=== PATIENT | female | born 1990 | race Caucasian/White ===

== ENCOUNTER 2020-02-12 19:16 | Emergency (ER) | payer BC, OTHER ==
[2020-02-12 19:44] LABS: Bilirubin Negative (Negative); Blood, Urine Negative (Negative); Clarity Clear (Clear); Glucose, Urine (Dipstick) Normal (Negative); Leukocyte Negative Leu/uL (Negative); Nitrite Negative (Negative); Protein, Urine (Dipstick) Negative (Neg-Trace); Urobilinogen Normal mg/dL (Less than 2)
[2020-02-12 19:57] LABS: #Basophils 0.1 thou/uL (0.0-0.2); #Eosinphils 0.2 thou/uL (0.0-0.7); #Lymphocytes 2.6 thou/uL (1.20-3.40); #Monocytes 0.8 thou/uL (0.11-0.59); #Neutrophils 7.3 thou/uL (1.40-6.50); %Basophils 0.5 % (0.0-1.0); %Eosinophils 1.5 % (0.0-10.0); %Lymphocytes 23.8 % (21.0-51.0); %Monocytes 7.5 % (0.0-10.0); %Neutrophils 66.7 % (42.0-75.0); Hemoglobin 13.3 g/dL (12.0-16.0); Mean Corpuscular HGB CONC 34.4 g/dL (32.0-36.0); Mean Corpuscular Hemoglobin 31.7 pg (27.0-31.0); Mean Corpuscular Volume 92.1 fL (78.0-98.0); Mean Platelet Volume 7.4 fL (7.4-10.4); Platelet Count 211 thou/uL (130-400); RBC Distribution Width 11.9 % (11.5-14.5); Red Blood Cell (RBC) Count 4.19 mill/uL (4.20-5.40)
[2020-02-12 21:09] LABS: ALT (SGPT) 10 U/L (8-55); AST (SGOT) 11 U/L (5-34); Albumin 3.6 g/dL (3.5-5.0); Alkaline Phosphatase 60 U/L (40-110); Anion Gap 12 mmol/L (10-20); BUN (Urea Nitrogen) 7 mg/dL (7.0-18.7); Bilirubin, Total 0.3 mg/dL (0.2-1.2); Calc. Creatinine Clearance 0 mL/min (70-130); Calcium 8.6 mg/dL (7.8-10.44); Carbon Dioxide 22 mmol/L (22-29); Chloride 106 mmol/L (98-107); Estimated GFR-MDRD Greater than 90; Globulin 2.5 g/dL (2.4-3.5); Glucose 80 mg/dL (70-105); Potassium 4.1 mmol/L (3.5-5.1); Protein, Total 6.1 g/dL (6.0-8.3); Sodium 136 mmol/L (136-145)
--- NOTE | 2020-02-12 22:24 | ULT ---
Transvaginal pelvic ultrasound with grayscale, color-flow and spectral Doppler imaging: HISTORY: 29-year-old female with lower abdominal pain, pelvic pain and no vaginal bleeding FINDINGS: A single live intrauterine gestation is seen with measurements corresponding to an estimated gestatio nal age of 17 weeks 4 days and MARTIN at 07/18/2020. The estimated weight measures 108 g or 7 ounces (88% by Hadlock criteria). measurements as follows: BPD 3.69 cm, 17 weeks 2 days HC 14.25 cm, 17 weeks 4 days AC:12.21 cm, 17 weeks 6 days FL 2.54 cm, 17 weeks 5 days heart rate measures 141 beats a minute. Cervical length measures 4.5 cm. There is a membrane in the lower uterine segment. Placenta is anteriorly located without evidence of placenta previa. Amniotic fluid appears adequate. A three-vessel cord, cord insertion, kidneys, bladder, stomach, 4 chambered heart, lateral vent ricles, cerebellum, spine are visualized and demonstrated no anomalies. IMPRESSION: 1. Single live intrauterine gestation of 17 weeks 4 days estimated gestational age and MARTIN at 020 2. Membrane in the lower uterine segment.
[2020-02-14 18:30] LABS: Chlamydia by PCR Not Detected (NotDetected); GC by PCR Not Detected (NotDetected)
== END 2020-02-12 23:30 | disposition home or self-care (01) ==
LOC: ERS 19:16
DX: O99.89 Other specified diseases and conditions complicating pregnancy, childbirth and the puerperium (principal); R10.30 Lower abdominal pain, unspecified; Z3A.17 17 weeks gestation of pregnancy; Z87.891 Personal history of nicotine dependence
CPT/HCPCS: 36415; 76856; 80053; 81003; 84702; 85025; 87480; 87491; 87510; 87591; 87660; 93976

== ENCOUNTER 2021-04-04 22:28 | Emergency (ER) | payer OTHER ==
[2021-04-04 23:00] LABS: Bilirubin Negative (Negative); Blood, Urine 3+ (Negative); Glucose, Urine (Dipstick) Normal (Negative); Ketone, Urine Negative (Negative); Leukocyte 500 Leu/uL (Negative); Nitrite Negative (Negative); Protein, Urine (Dipstick) 600 mg/dL (Neg-Trace); RBC/HPF Greater than 50 HPF (0-3); Specific Gravity, Urine 1.034 (1.002-1.036); Urobilinogen Normal mg/dL (Less than 2); WBC/HPF Greater than 50 HPF (0-3); pH, Urine 6.5 (5.0-9.0)
[2021-04-04 23:01] LABS: Bacteria/HPF 1+ HPF (None Seen); Clarity Turbid (Clear)
[2021-04-05 01:29] LABS: Pregnancy Test - Urine (BHCG) Negative (Negative); Pregu Control Background? CLEAR/WHITE (CLR/WHITE); Pregu Control Bar Appear? YES (CONTROL BAR)
[2021-04-05 01:30] LABS: Specific Gravity 1.034 (1.002-1.036)
== END 2021-04-05 01:57 | disposition home or self-care (01) ==
LOC: ERS 22:28
DX: N39.0 Urinary tract infection, site not specified (principal)
CPT/HCPCS: 81003; 81015; 81025; 99283

== ENCOUNTER 2022-05-15 11:55 | Inpatient (IN) | payer OTHER ==
[~2022-05-15 11:55] MED LIST: Iopamidol-370 76% 500 ML 1 ML ONE
[2022-05-15] MEDS ORDERED: Acetaminophen 500 MG TAB ONE (12:39)
[2022-05-15] MEDS ORDERED: Haloperidol Lactate 5 MG/ML VIAL ONE ×2 (12:39→15:52)
[2022-05-15 13:03] LABS: #Basophils 0.1 thou/uL (0.0-0.2); #Eosinphils 0.1 thou/uL (0.0-0.7); #Lymphocytes 2.5 thou/uL (1.20-3.40); #Monocytes 0.6 thou/uL (0.11-0.59); #Neutrophils 7.8 thou/uL (1.40-6.50); %Basophils 0.5 % (0.0-1.0); %Eosinophils 0.7 % (0.0-10.0); %Lymphocytes 22.5 % (21.0-51.0); %Monocytes 5.3 % (0.0-10.0); %Neutrophils 70.9 % (42.0-75.0); Hemoglobin 13.6 g/dL (12.0-16.0); Mean Corpuscular HGB CONC 32.7 g/dL (32.0-36.0); Mean Corpuscular Hemoglobin 29.4 pg (27.0-31.0); Mean Corpuscular Volume 90.1 fL (78.0-98.0); Mean Platelet Volume 8.1 fL (7.4-10.4); Platelet Count 226 thou/uL (130-400); RBC Distribution Width 13.1 % (11.5-14.5); Red Blood Cell (RBC) Count 4.62 mill/uL (4.20-5.40)
[2022-05-15 13:24] LABS: ALT (SGPT) 13 U/L (8-55); AST (SGOT) 15 U/L (5-34); Albumin 3.9 g/dL (3.5-5.0); Alkaline Phosphatase 58 U/L (40-110); Anion Gap 15 mmol/L (10-20); BUN (Urea Nitrogen) 9 mg/dL (7.0-18.7); Bilirubin, Total 0.3 mg/dL (0.2-1.2); CRP (Inflammatory) Less than 0.50 mg/dL (= or < 0.5); Calc. Creatinine Clearance 0 mL/min (70-130); Calcium 8.7 mg/dL (7.8-10.44); Carbon Dioxide 23 mmol/L (22-29); Chloride 106 mmol/L (98-107); Estimated GFR 118; Globulin 2.5 g/dL (2.4-3.5); Glucose 155 mg/dL (70-105); Lipase 10 U/L (8-78); Potassium 3.7 mmol/L (3.5-5.1); Protein, Total 6.4 g/dL (6.0-8.3); Sodium 140 mmol/L (136-145)
[2022-05-15 13:46] LABS: Pregnancy Test - Urine (BHCG) Negative (Negative); Pregu Control Background? CLEAR/WHITE (CLR/WHITE); Pregu Control Bar Appear? YES (CONTROL BAR); Specific Gravity 1.017 (1.002-1.036)
[2022-05-15] MEDS ORDERED: Morphine 2 MG/ML VIAL ONE (13:54)
[2022-05-15 14:00] LABS: Clarity Clear (Clear); Leukocyte Unable to Interpret Leu/uL (Negative); Specific Gravity, Urine 1.017 (1.002-1.036); pH, Urine 5.5 (5.0-9.0)
[2022-05-15 14:01] LABS: Bilirubin Unable to Interpret (Negative); Blood, Urine Unable to Interpret (Negative); Glucose, Urine (Dipstick) Unable to Interpret mg/dL (Negative); Ketone, Urine Unable to Interpret mg/dL (Negative); Nitrite Unable to Interpret (Negative); Protein, Urine (Dipstick) Unable to Interpret mg/dL (Neg-Trace); RBC/HPF 0-3 HPF (0-3); Squamous Epithelial None Seen HPF (0-3); Urobilinogen UNABLE TO INTERPRET mg/dL (Less than 2); WBC/HPF 0-3 HPF (0-3)
[2022-05-15 14:02] LABS: Bacteria/HPF Rare-Few HPF (None Seen)
[2022-05-15] MEDS ORDERED: Ondansetron PF 4 MG/2 ML Vial ONE (15:53)
[2022-05-15 16:38] LABS: Lactic Acid 1.8 mmol/L (0.5-2.2)
[2022-05-15] MEDS ORDERED: Metoclopramide HCl 10 MG/2 ML VIAL IVP PRN (16:39)
[2022-05-15] MEDS ORDERED: Acetaminophen 325 MG TAB PO PRN (16:39)
[2022-05-15] MEDS ORDERED: Morphine 2 MG/ML VIAL SLOW IVP PRN (16:49)
[2022-05-15 18:36] LABS: Chlamydia by PCR Not Detected (NotDetected); GC by PCR Not Detected (NotDetected)
[2022-05-15] MEDS: Sodium Chloride 0.9% 1,000 ML IV SCH (18:43)
[2022-05-15 19:42] VITALS: BMI 25.0
[2022-05-15 20:05] LABS: SARS-CoV-2 NAA Rapid Test Not Detected (NotDetected)
[2022-05-15] MEDS: Ondansetron PF 4 MG/2 ML Vial IVP PRN (21:01)
[2022-05-16] MEDS: Sodium Chloride 0.9% 1,000 ML IV SCH ×4 (02:20→20:16)
[2022-05-16 05:14] LABS: #Lymphocytes 1.4 thou/uL (1.20-3.40); #Monocytes 0.7 thou/uL (0.11-0.59); #Neutrophils 9.5 thou/uL (1.40-6.50); %Lymphocytes 12.3 % (21.0-51.0); %Monocytes 5.9 % (0.0-10.0); %Neutrophils 81.7 % (42.0-75.0); Hemoglobin 12.7 g/dL (12.0-16.0); Mean Corpuscular HGB CONC 32.7 g/dL (32.0-36.0); Mean Corpuscular Hemoglobin 29.4 pg (27.0-31.0); Mean Corpuscular Volume 89.9 fL (78.0-98.0); Mean Platelet Volume 8.2 fL (7.4-10.4); Platelet Count 180 thou/uL (130-400); RBC Distribution Width 12.9 % (11.5-14.5); Red Blood Cell (RBC) Count 4.33 mill/uL (4.20-5.40); White Blood Cell (WBC) Count 11.7 thou/uL (4.8-10.8)
[2022-05-16 05:32] LABS: Anion Gap 11 mmol/L (10-20); BUN (Urea Nitrogen) 6 mg/dL (7.0-18.7); Calc. Creatinine Clearance 167 mL/min (70-130); Calcium 8.5 mg/dL (7.8-10.44); Carbon Dioxide 23 mmol/L (22-29); Chloride 107 mmol/L (98-107); Estimated GFR 126; Glucose 124 mg/dL (70-105); Potassium 3.7 mmol/L (3.5-5.1); Sodium 137 mmol/L (136-145)
[2022-05-16] MEDS: Ondansetron PF 4 MG/2 ML Vial IVP PRN (09:25)
[2022-05-16 09:39] LABS: HBCM Index 0.06 S/CO (0-0.79); HBSAg Index 0.29 S/CO (0-0.99); Hep A IgM AB Non-Reactive (NonReactive); Hep A IgM S/CO 0.15 S/CO (0-0.79); Hep B Surf Ag Non-Reactive S/CO (NonReactive); Hep C IgG Ab Non-Reactive (NonReactive); Hep C Index 0.07 S/CO (0-0.79); Hepatitis B Core IgM Abs Non-Reactive (NonReactive)
[2022-05-16 15:55] LABS: Bacteria/HPF None Seen HPF (None Seen); Bilirubin Negative (Negative); Blood, Urine Negative (Negative); Clarity Clear (Clear); Glucose, Urine (Dipstick) Normal (Negative); Ketone, Urine Negative (Negative); Leukocyte Negative Leu/uL (Negative); Nitrite Negative (Negative); Protein, Urine (Dipstick) Negative (Neg-Trace); RBC/HPF 0-3 HPF (0-3); Squamous Epithelial 0-3 HPF (0-3); Urobilinogen Normal mg/dL (Less than 2); WBC/HPF 0-3 HPF (0-3); pH, Urine 7.5 (5.0-9.0)
[2022-05-16 20:23] VITALS: TEMP 98
[2022-05-16] MEDS ORDERED: hydrOXYzine 25 MG TAB PO PRN (20:41)
[2022-05-17 04:53] LABS: #Eosinphils 0.1 thou/uL (0.0-0.7); #Lymphocytes 2.5 thou/uL (1.20-3.40); #Monocytes 0.6 thou/uL (0.11-0.59); #Neutrophils 3.1 thou/uL (1.40-6.50); %Basophils 0.5 % (0.0-1.0); %Lymphocytes 39.7 % (21.0-51.0); %Monocytes 9.4 % (0.0-10.0); %Neutrophils 48.4 % (42.0-75.0); Hemoglobin 11.4 g/dL (12.0-16.0); Mean Corpuscular HGB CONC 32.5 g/dL (32.0-36.0); Mean Corpuscular Hemoglobin 29.4 pg (27.0-31.0); Mean Corpuscular Volume 90.2 fL (78.0-98.0); Mean Platelet Volume 8.2 fL (7.4-10.4); Platelet Count 147 thou/uL (130-400); RBC Distribution Width 12.9 % (11.5-14.5); White Blood Cell (WBC) Count 6.3 thou/uL (4.8-10.8)
[2022-05-17] MEDS: Sodium Chloride 0.9% 1,000 ML IV SCH (05:02)
[2022-05-17 05:21] LABS: Anion Gap 11 mmol/L (10-20); BUN (Urea Nitrogen) 6 mg/dL (7.0-18.7); Calc. Creatinine Clearance 159 mL/min (70-130); Calcium 8.4 mg/dL (7.8-10.44); Carbon Dioxide 24 mmol/L (22-29); Chloride 110 mmol/L (98-107); Estimated GFR 125; Glucose 90 mg/dL (70-105); Potassium 3.5 mmol/L (3.5-5.1); Sodium 141 mmol/L (136-145)
[2022-05-17 08:18] VITALS: BP 107/71
== END 2022-05-17 10:50 | disposition home or self-care (01) | DRG 392 ==
LOC: ERS 11:55 → SUATTDRO 11:55 → MSONC 16:03 → OBSVTOIN 05-16 11:56
PROVIDERS: ADMIT Internal Medicine; ATTEND Internal Medicine
DX: R10.9 Unspecified abdominal pain (principal); Z20.822 Contact with and (suspected) exposure to COVID-19; N73.9 Female pelvic inflammatory disease, unspecified; F41.9 Anxiety disorder, unspecified; F31.9 Bipolar disorder, unspecified; F43.10 Post-traumatic stress disorder, unspecified; F17.210 Nicotine dependence, cigarettes, uncomplicated; R11.2 Nausea with vomiting, unspecified
CPT/HCPCS: 36415; 51701; 74177; 80048; 80053; 80074; 81003; 81015; 81025; 83605; 83690; 85025; 86140; 87040; 87086; 87491; 87591; 87661; 96365; 96375; 96376; G0378; J1630; J2270; J2405; J2765; J7050; Q9967

== ENCOUNTER 2022-05-19 11:48 | Emergency (ER) | payer OTHER ==
[2022-05-19 12:53] LABS: #Basophils 0.1 thou/uL (0.0-0.2); #Eosinphils 0.1 thou/uL (0.0-0.7); #Monocytes 0.6 thou/uL (0.11-0.59); #Neutrophils 5.6 thou/uL (1.40-6.50); %Eosinophils 1.2 % (0.0-10.0); %Lymphocytes 24.2 % (21.0-51.0); %Monocytes 6.9 % (0.0-10.0); %Neutrophils 66.7 % (42.0-75.0); Hemoglobin 14.1 g/dL (12.0-16.0); Mean Corpuscular HGB CONC 32.3 g/dL (32.0-36.0); Mean Corpuscular Hemoglobin 28.6 pg (27.0-31.0); Mean Corpuscular Volume 88.4 fL (78.0-98.0); Mean Platelet Volume 8.1 fL (7.4-10.4); Platelet Count 233 thou/uL (130-400); RBC Distribution Width 12.8 % (11.5-14.5); Red Blood Cell (RBC) Count 4.93 mill/uL (4.20-5.40); White Blood Cell (WBC) Count 8.4 thou/uL (4.8-10.8)
[2022-05-19 13:17] LABS: ALT (SGPT) 14 U/L (8-55); AST (SGOT) 12 U/L (5-34); Albumin 4.1 g/dL (3.5-5.0); Alkaline Phosphatase 62 U/L (40-110); Anion Gap 15 mmol/L (10-20); BUN (Urea Nitrogen) 7 mg/dL (7.0-18.7); Bilirubin, Total 0.5 mg/dL (0.2-1.2); Calc. Creatinine Clearance 0 mL/min (70-130); Calcium 9.3 mg/dL (7.8-10.44); Carbon Dioxide 26 mmol/L (22-29); Chloride 105 mmol/L (98-107); Estimated GFR 112; Globulin 2.4 g/dL (2.4-3.5); Glucose 116 mg/dL (70-105); Potassium 3.6 mmol/L (3.5-5.1); Protein, Total 6.5 g/dL (6.0-8.3); Sodium 142 mmol/L (136-145)
[2022-05-19] MEDS ORDERED: Ondansetron PF 4 MG/2 ML Vial ONE (13:20)
[2022-05-19] MEDS ORDERED: Lidocaine Viscous Sol 2% 15 ml UD Cup ONE (13:20)
[2022-05-19] MEDS ORDERED: Dicyclomine 20 MG/2 ML VIAL ONE (13:20)
[2022-05-19] MEDS ORDERED: Mag-Al 1200 mg/1200 mg/30 ML UDCUP ONE (13:20)
[2022-05-19] MEDS ORDERED: Pantoprazole 40 MG VIAL ONE (13:22)
[2022-05-19 13:25] LABS: Bilirubin Negative (Negative); Blood, Urine Negative (Negative); Clarity Turbid (Clear); Glucose, Urine (Dipstick) Normal (Negative); Ketone, Urine Negative (Negative); Leukocyte Negative Leu/uL (Negative); Nitrite Negative (Negative); Protein, Urine (Dipstick) Negative (Neg-Trace); Specific Gravity, Urine 1.014 (1.002-1.036); Urobilinogen Normal mg/dL (Less than 2); pH, Urine 7.5 (5.0-9.0)
[2022-05-19 13:40] LABS: BHCG - Serum Negative (NEGATIVE); Pregs Control Background? CLEAR/WHITE (CLR/WHITE); Pregs Control Bar Appear? YES (CONTROL BAR)
[2022-05-19 13:48] LABS: CK (CPK) 45 U/L (29-168); Magnesium 1.9 mg/dL (1.6-2.6)
== END 2022-05-19 14:00 | disposition left against medical advice (07) ==
LOC: ERS 11:48
DX: R11.2 Nausea with vomiting, unspecified (principal); Z53.29 Procedure and treatment not carried out because of patient's decision for other reasons; Z87.891 Personal history of nicotine dependence
CPT/HCPCS: 36415; 70450; 80053; 81003; 82550; 83735; 84443; 84484; 84703; 85025; 96372; 96374; 96375; C9113; J2405

== ENCOUNTER 2025-04-28 14:40 | Inpatient (IN) | payer SELFPAY ==
[2025-04-28 15:14] LABS: Pregnancy Test - Urine (BHCG) Negative (Negative); Pregu Control Background? CLEAR/WHITE (CLR/WHITE); Pregu Control Bar Appear? YES (CONTROL BAR)
[2025-04-28 15:19] LABS: #Basophils 0.04 10x3/uL (0.0-0.2); #Eosinophils 0.03 10x3/uL (0.0-0.7); #Monocytes 0.51 10x3/uL (0.11-0.59); #Neutrophils 11.13 10x3/uL (1.40-6.50); %Basophils 0.3 % (0.0-1.0); %Eosinophils 0.2 % (0.0-10.0); %Lymphocytes 6.2 % (21.0-51.0); %Monocytes 4.1 % (0.0-10.0); %Neutrophils 88.8 % (42.0-75.0); Hematocrit 36.4 % (36.0-47.0); Hemoglobin 12.3 g/dL (12.0-16.0); Mean Corpuscular Hemoglobin 30.1 pg (27.0-31.0); Mean Corpuscular Volume 89.0 fL (78.0-98.0); Platelet Count 216 10x3/uL (130-400); Red Blood Cell (RBC) Count 4.09 mill/uL (4.20-5.40); White Blood Cell (WBC) Count 12.54 10x3/uL (4.8-10.8)
[2025-04-28 15:19] LABS: Bacteria/HPF 1+ HPF (None Seen); CAUTI Indications for Culture Pelvic or flank pain; Glucose, Urine (Dipstick) Normal (Negative); Leukocyte Negative Leu/uL (Negative); Protein, Urine (Dipstick) Negative (Neg-Trace); RBC/HPF 0-3 HPF (0-3); Specific Gravity, Urine 1.017 (1.002-1.036); WBC/HPF 0-3 HPF (0-3)
[2025-04-28 15:20] LABS: Urine Culture Reflex No No
[2025-04-28 16:30] LABS: ALT (SGPT) 14 U/L (Less than 34); AST (SGOT) 17 U/L (11-34); Albumin 3.9 g/dL (3.1-4.5); Alkaline Phosphatase 50 U/L (40-110); Anion Gap 17 mmol/L (10-20); BUN (Urea Nitrogen) 12 mg/dL (7.0-18.7); Bilirubin, Total 0.5 mg/dL (0.3-1.2); Calc. Creatinine Clearance 0 mL/min (70-130); Calcium 8.8 mg/dL (7.8-10.44); Carbon Dioxide 19 mmol/L (22-29); Chloride 106 mmol/L (98-107); Globulin 2.5 g/dL (2.4-3.5); Glucose 165 mg/dL (70-105); Potassium 3.5 mmol/L (3.5-5.1); Sodium 138 mmol/L (136-145)
[2025-04-28] MEDS ORDERED: Ketorolac Tromethamine 30 MG (1 mL) VIAL ONE (16:42)
[2025-04-28] MEDS ORDERED: Ondansetron PF 4 MG/2 ML Vial ONE (16:42)
[2025-04-28] MEDS: Ondansetron PF 4 MG/2 ML Vial IVP PRN (20:35)
[2025-04-28] MEDS: HYDROcodone/Acetaminophen 5/325 mg Tablet PO PRN (20:38)
[2025-04-28] MEDS: cefTRIAXone\\ROCEPHIN 2 GM in Sodium Chloride 0.9% 100 ML IVPB SCH (20:41)
[2025-04-28] MEDS: Pantoprazole 40 MG VIAL IVP SCH (21:42)
[2025-04-28] MEDS: Floranex 1 GM Packet PO SCH (21:46)
[2025-04-28] MEDS: Famotidine 20 MG TAB PO SCH (21:46)
[2025-04-29 02:15] LABS: Cocaine Metabolite Screen Negative (Negative); THC/Cannabinoid Screen PRELIM POSITIVE (Negative); Tricyclic Screen Negative (Negative)
[2025-04-29 04:10] VITALS: BMI 28.1
[2025-04-29] MEDS: diphenhydrAMINE 50 MG/ML VIAL IVP SCH (04:21)
[2025-04-29] MEDS: Lactulose 20 GM (30 mL) UDCUP PO SCH (04:21)
[2025-04-29] MEDS: Ondansetron PF 4 MG/2 ML Vial IVP PRN (07:57)
[2025-04-29] MEDS: Potassium Chloride 20 MEQ in Premix 1 BAG IVPB SCH (08:06)
[2025-04-29] MEDS ORDERED: Iopamidol 370 76% 100 ML VIAL ONE (10:22)
[2025-04-29] MEDS: Ondansetron PF 4 MG/2 ML Vial IVP SCH (14:00)
[2025-04-29] MEDS: Electrolyte Replacement Protocol 1 EACH FS ONE (15:47)
[2025-04-29] MEDS: Ketorolac Tromethamine 30 MG (1 mL) VIAL IVP PRN (18:10)
[2025-04-29] MEDS ORDERED: Senokot S 8.6-50 MG TAB PO PRN (18:20)
[2025-04-29] MEDS: Pantoprazole 40 MG VIAL IVP SCH (21:36)
[2025-04-29] MEDS: Dicyclomine 10 MG CAP PO PRN (21:51)
[2025-04-30 05:07] LABS: #Basophils 0.03 10x3/uL (0.0-0.2); #Eosinophils 0.04 10x3/uL (0.0-0.7); #Monocytes 0.59 10x3/uL (0.11-0.59); #Neutrophils 5.55 10x3/uL (1.40-6.50); %Basophils 0.4 % (0.0-1.0); %Eosinophils 0.5 % (0.0-10.0); %Lymphocytes 26.0 % (21.0-51.0); %Monocytes 7.0 % (0.0-10.0); %Neutrophils 66.0 % (42.0-75.0); Hematocrit 34.5 % (36.0-47.0); Hemoglobin 11.1 g/dL (12.0-16.0); Mean Corpuscular Hemoglobin 29.4 pg (27.0-31.0); Mean Corpuscular Volume 91.5 fL (78.0-98.0); Platelet Count 189 10x3/uL (130-400); Red Blood Cell (RBC) Count 3.77 mill/uL (4.20-5.40); White Blood Cell (WBC) Count 8.40 10x3/uL (4.8-10.8)
[2025-04-30 05:37] LABS: ALT (SGPT) 11 U/L (Less than 34); AST (SGOT) 13 U/L (11-34); Albumin 3.3 g/dL (3.1-4.5); Alkaline Phosphatase 36 U/L (40-110); Anion Gap 12 mmol/L (10-20); BUN (Urea Nitrogen) 11 mg/dL (7.0-18.7); Bilirubin, Total 0.4 mg/dL (0.3-1.2); Calc. Creatinine Clearance 175 mL/min (70-130); Calcium 8.3 mg/dL (7.8-10.44); Carbon Dioxide 25 mmol/L (22-29); Chloride 107 mmol/L (98-107); Globulin 1.9 g/dL (2.4-3.5); Glucose 85 mg/dL (70-105); Magnesium 2.0 mg/dL (1.6-2.6); Potassium 3.4 mmol/L (3.5-5.1); Sodium 141 mmol/L (136-145)
[2025-04-30] MEDS: Magnesium 2 GM/50 ML(in water) 2 GM in Premix 1 BAG IVPB SCH (10:38)
[2025-04-30 13:19] VITALS: BP 115/78; TEMP 99.1
[2025-04-30] MEDS: Potassium Phosphate 30 MMOL in Sodium Chloride 0.9% 250 ML 250 ML IVPB SCH (13:24)
[2025-04-30] MEDS: PHOS-NAK 1 PKT PACK PO SCH (13:28)
[2025-04-30] MEDS ORDERED: Pantoprazole 40 MG DR.TAB PO SCH (21:00)
== END 2025-04-30 13:25 | disposition home or self-care (01) | DRG 392 ==
LOC: ERS 14:40 → INTOOBSV 19:13 → SURG A 19:13 → OBSVTOIN 04-29 11:24
PROVIDERS: ADMIT Student in an Organized Health Care Education/Training Program; ATTEND Internal Medicine
DX: R11.10 Vomiting, unspecified (principal); E87.20 Acidosis, unspecified; F12.10 Cannabis abuse, uncomplicated; K52.89 Other specified noninfective gastroenteritis and colitis; E87.6 Hypokalemia; F32.A Depression, unspecified; F41.9 Anxiety disorder, unspecified; F43.10 Post-traumatic stress disorder, unspecified; E83.39 Other disorders of phosphorus metabolism; Z98.890 Other specified postprocedural states; Z82.49 Family history of ischemic heart disease and other diseases of the circulatory system; Z79.899 Other long term (current) drug therapy; Z90.710 Acquired absence of both cervix and uterus; Z87.891 Personal history of nicotine dependence
CPT/HCPCS: 36415; 74174; 74176; 76705; 80053; 80306; 81001; 81025; 83605; 83735; 84100; 85025; 93005; 96374; 96375; 96376; G0378; J0696; J1885; J2270; J2405; J2470; J2543; J2550; J3475; J3480; J7030; J7120; Q9967

== ENCOUNTER 2025-05-07 17:56 | Emergency (ER) | payer MEDICAID, SELFPAY ==
[~2025-05-07 17:56] MED LIST changes: -Iopamidol-370 76% 500 ML 1 ML ONE; +Iopamidol-370 76% 500 ML MDV (1 ML CHARGE) ONE
[2025-05-07] MEDS ORDERED: Ondansetron PF 4 MG/2 ML Vial ONE (18:47)
[2025-05-07] MEDS ORDERED: Acetaminophen 500 MG TAB ONE (18:47)
[2025-05-07] MEDS ORDERED: Ketorolac Tromethamine 30 MG (1 mL) VIAL ONE (18:47)
[2025-05-07 19:08] LABS: Bacteria/HPF None Seen HPF (None Seen); CAUTI Indications for Culture Pelvic or flank pain; Glucose, Urine (Dipstick) Normal (Negative); Leukocyte Negative Leu/uL (Negative); Protein, Urine (Dipstick) Negative (Neg-Trace); RBC/HPF 0-3 HPF (0-3); Specific Gravity, Urine 1.018 (1.002-1.036); WBC/HPF 0-3 HPF (0-3)
[2025-05-07 19:15] LABS: #Basophils 0.05 10x3/uL (0.0-0.2); #Eosinophils Less than 0.03 10x3/uL (0.0-0.7); #Monocytes 0.46 10x3/uL (0.11-0.59); #Neutrophils 12.66 10x3/uL (1.40-6.50); %Basophils 0.4 % (0.0-1.0); %Eosinophils 0.1 % (0.0-10.0); %Lymphocytes 6.0 % (21.0-51.0); %Monocytes 3.3 % (0.0-10.0); %Neutrophils 90.0 % (42.0-75.0); Hematocrit 37.6 % (36.0-47.0); Hemoglobin 12.1 g/dL (12.0-16.0); Mean Corpuscular Hemoglobin 29.4 pg (27.0-31.0); Mean Corpuscular Volume 91.3 fL (78.0-98.0); Platelet Count 292 10x3/uL (130-400); Red Blood Cell (RBC) Count 4.12 mill/uL (4.20-5.40); White Blood Cell (WBC) Count 14.06 10x3/uL (4.8-10.8)
[2025-05-07 19:20] LABS: Urine Culture Reflex No No
[2025-05-07 19:26] LABS: BHCG - Serum Negative (NEGATIVE); Pregs Control Bar Appear? YES (CONTROL BAR)
[2025-05-07 19:27] LABS: Pregs Control Background? CLEAR/WHITE (CLR/WHITE)
[2025-05-07 19:31] LABS: ALT (SGPT) 10 U/L (Less than 34); AST (SGOT) 13 U/L (11-34); Albumin 4.2 g/dL (3.1-4.5); Alkaline Phosphatase 53 U/L (40-110); Anion Gap 16 mmol/L (10-20); BUN (Urea Nitrogen) 15 mg/dL (7.0-18.7); Bilirubin, Total 0.4 mg/dL (0.3-1.2); Calc. Creatinine Clearance 0 mL/min (70-130); Calcium 9.1 mg/dL (7.8-10.44); Carbon Dioxide 22 mmol/L (22-29); Chloride 108 mmol/L (98-107); Globulin 2.4 g/dL (2.4-3.5); Glucose 126 mg/dL (70-105); Lipase 8 U/L (8-78); Potassium 3.6 mmol/L (3.5-5.1); Sodium 142 mmol/L (136-145)
[2025-05-07] MEDS ORDERED: Metoclopramide HCl 10 MG (2 mL) VIAL ONE (19:48)
[2025-05-07 21:31] LABS: Acetaminophen Less than 10 mcg/mL (Less than 10); Salicylate Less than 8.0 mg/dL (Less than 8.0)
[2025-05-08 00:13] LABS: Cocaine Metabolite Screen Negative (Negative); THC/Cannabinoid Screen PRELIM POSITIVE (Negative); Tricyclic Screen Negative (Negative)
== END 2025-05-08 00:13 | disposition home or self-care (01) ==
LOC: ERS 17:56
DX: R10.32 Left lower quadrant pain (principal); R11.2 Nausea with vomiting, unspecified; F17.290 Nicotine dependence, other tobacco product, uncomplicated
CPT/HCPCS: 36415; 74177; 76856; 80053; 80306; 80307; 81001; 83605; 83690; 84703; 85025; 93976; 96361; 96365; 96375; 96376; J1885; J2405; J2550; J2765; J3010; Q9967